=== PATIENT | male | born 1945 | race Caucasian/White ===

== ENCOUNTER 2023-06-29 10:46 | Outpatient (OUT) | payer MEDICARE, OTHER, SELFPAY ==
--- NOTE | 2023-06-29 11:13 | XR_ITS ---
The [address] [address] Patient Name: DHAVAL ODROÑEZ MRN: [id number] date: 1945 Sex: M Assigned Patient Location: LAB Current Patient Location: Accession/Order Number: [id number] Exam Date: 06/29/2023 11:20 Report Date: 06/30/2023 06:40 At the request of: KORINA TAYLOR Procedure: XR abdomen 1V EXAMINATION: XR abdomen 1V HISTORY: kidney stone COMPARISON: XR abdomen 06/24/2022 FINDINGS: KIDNEY/URETER - RIGHT: No visible renal or ureteral calcifications. KIDNEY/URETER - LEFT: No visible renal or ureteral calcifications. PELVIS: No visible ureteral stones. BOWEL: No abnormal dilation or deviation. BONES: No acute abnormality. OTHER: Negative. No abnormal gaseous collections. XR/XR abdomen 1V IMPRESSION: 1. No visible urinary tract calculi. Electronically authenticated by: ROSELYN MARCIAL Date: 06/30/2023 06:40
[2023-06-29 12:18] LABS: Prostate Specific Antigen Dx 0.96 ng/mL (<=4.00)
== END 2023-06-29 10:47 | disposition home or self-care (01) ==
PROVIDERS: Visit Provider Urology
DX: N20.0 Calculus of kidney (principal); N40.1 Benign prostatic hyperplasia with lower urinary tract symptoms
CPT/HCPCS: 36415; 74018; 84153

== ENCOUNTER 2024-06-26 14:04 | Outpatient (OUT) | payer MEDICARE, OTHER, SELFPAY ==
--- NOTE | 2024-06-26 14:13 | XR_ITS ---
[address] [address] Patient Name: DHAVAL ORDOÑEZ MRN: [id number] date: 1945 Sex: M Assigned Patient Location: [facility] Current Patient Location: Accession/Order Number: [id number] Exam Date: 06/26/2024 14:18 Report Date: 06/29/2024 10:25 At the request of: KORINA TAYLOR Procedure: XR abdomen 1V EXAMINATION: XR abdomen 1V HISTORY: Kidney Stones COMPARISON: 06/29/2023 FINDINGS: KIDNEY/URETER - RIGHT: No visible renal or ureteral calcifications. KIDNEY/URETER - LEFT: No visible renal or ureteral calcifications. PELVIS: No visible ureteral calcifications. Any visible calcifications favor phleboliths. BOWEL: No abnormal dilation or deviation. BONES: No acute abnormality. Degenerative changes of the spine and hips OTHER: Negative. No abnormal gaseous collections. XR/XR abdomen 1V IMPRESSION: No definite urinary tract calculi Electronically authenticated by: [place] SANTIAGO Date: 06/29/2024 10:25
== END 2024-06-26 14:05 | disposition home or self-care (01) ==
LOC: RAD 14:07
PROVIDERS: Visit Provider Urology
DX: Z87.442 Personal history of urinary calculi (principal)
CPT/HCPCS: 74018